=== PATIENT | male | born 1990 | race Caucasian/White ===

== ENCOUNTER 2018-03-03 13:26 | Emergency (ER) | payer MEDICAID ==
[~2018-03-03] VITALS: Ht 172.7 cm; Wt 62.7 kg
[2018-03-03 13:41] VITALS: BP 134/74
[2018-03-03] MEDS ORDERED: PRED50TA PO (14:35)
[2018-03-03] MEDS ORDERED: IBUP-1986 PO (14:35)
[2018-03-03] MEDS ORDERED: ketorolac tromethamine 15mg/ml inj. IM ONE (14:35)
== END 2018-03-03 15:09 | disposition home or self-care (01) ==
LOC: ER 13:27
DX: M25.531 Pain in right wrist (principal); M79.89 Other specified soft tissue disorders; F17.200 Nicotine dependence, unspecified, uncomplicated; Z79.899 Other long term (current) drug therapy; X50.9XXA Other and unspecified overexertion or strenuous movements or postures, initial encounter; Y93.H1 Activity, digging, shoveling and raking; Y92.89 Other specified places as the place of occurrence of the external cause; Y99.8 Other external cause status
CPT/HCPCS: 29125; 73090; 96372; 99284; J1885

== ENCOUNTER 2018-12-17 18:17 | Emergency (ER) | payer MEDICAID, OTHER ==
[~2018-12-17] VITALS: Ht 172.7 cm; Wt 75.0 kg
[~2018-12-17 18:17] MED LIST: IBUP-1986 PO; PRED50TA PO
[2018-12-17] MEDS ORDERED: TETanus/Pertussis (Acell)/Diphther VAC/PF (Tdap-Adult) 0.5ml syringe IMVAC ONE (18:35)
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
--- NOTE | 2018-12-17 19:03 | NUR ---
[facility] AT BEDSIDE.
[2018-12-17] MEDS ORDERED: CEPH500C5 PO (19:39)
[2018-12-17] MEDS ORDERED: cephalexin 250mg capsule PO ONE (19:40)
--- NOTE | 2018-12-17 19:41 | NUR ---
[facility] INTERVIEW COMPLETED.
[2018-12-17 19:44] VITALS: BP 145/86
== END 2018-12-17 19:58 | disposition home or self-care (01) ==
LOC: ER 18:18
DX: S81.801A Unspecified open wound, right lower leg, initial encounter (principal); Z79.899 Other long term (current) drug therapy; W34.09XA Accidental discharge from other specified firearms, initial encounter; Y93.89 Activity, other specified; Y92.89 Other specified places as the place of occurrence of the external cause; Y99.9 Unspecified external cause status
CPT/HCPCS: 73590; 90471; 90715; 99283

== ENCOUNTER 2019-01-07 00:53 | Emergency (ER) | payer MEDICAID, OTHER ==
[~2019-01-07] VITALS: Ht 172.7 cm; Wt 72.7 kg
[~2019-01-07 00:53] MED LIST changes: +CEPH500C5 PO
[2019-01-07 01:10] VITALS: BP 126/81
[2019-01-07] MEDS ORDERED: AMOX-580 PO (01:34)
[2019-01-07] MEDS ORDERED: amox tr/potassium clavulanate 875/125mg TAB PO ONE (01:35)
== END 2019-01-07 01:56 | disposition home or self-care (01) ==
LOC: ER 00:54
DX: K04.7 Periapical abscess without sinus (principal); Z79.899 Other long term (current) drug therapy
CPT/HCPCS: 99283

== ENCOUNTER 2019-03-03 02:51 | Emergency (ER) | payer MEDICAID, OTHER ==
[~2019-03-03] VITALS: Ht 172.7 cm; Wt 69.0 kg
[2019-03-03 04:50] VITALS: BP 125/82
[2019-03-03] MEDS ORDERED: PENI500T2 PO (06:07)
== END 2019-03-03 06:37 | disposition home or self-care (01) ==
LOC: ER 02:52
DX: K02.9 Dental caries, unspecified (principal); Z79.2 Long term (current) use of antibiotics; Z79.899 Other long term (current) drug therapy
CPT/HCPCS: 99283

== ENCOUNTER 2019-09-28 11:41 | Emergency (ER) | payer MEDICAID ==
[~2019-09-28] VITALS: Ht 172.7 cm; Wt 72.0 kg
[2019-09-28 12:02] VITALS: BP 121/85
[2019-09-28] MEDS ORDERED: CefTRIAXone 2gm/D5W 50ml 50 ML IV ONE (12:50)
[2019-09-28] MEDS ORDERED: vancomycin/NS 1 GM ADD-VANTAGE 250 ML IV ONE (12:50)
[2019-09-28] MEDS ORDERED: normal saline 1000ML IV soln IV ONE (12:50)
[2019-09-28 12:55] LABS: ALANINE AMINOTRANSFERASE 22 U/L (12-78); ALBUMIN 3.7 G/DL (3.4-5.0); ALBUMIN/GLOBULIN RATIO 0.9 (1.1-1.5); ALKALINE PHOSPHATASE 139 IU/L (46-116); ANION GAP 7 (8-16); ASPARTATE AMINO TRANSFERASE 23 U/L (10-37); BILIRUBIN,TOTAL 0.6 MG/DL (0.1-1.0); BLOOD UREA NITROGEN 11 MG/DL (7-18); BUN/CREATININE RATIO 12.4 (5.4-32.0); CHLORIDE 103 MMOL/L (99-107); CREATININE 0.89 MG/DL (0.60-1.10); GLUCOSE 90 MG/DL (70-104); POTASSIUM 4.2 MMOL/L (3.5-5.1); SODIUM 135 MMOL/L (135-145); TOTAL CARBON DIOXIDE 24.6 MMOL/L (24-32); eGFR > 90 ML/MIN
[2019-09-28] MEDS ORDERED: SULF1TAB49 PO (14:20)
== END 2019-09-28 14:18 | disposition left against medical advice (07) ==
LOC: ER 11:41
DX: L02.511 Cutaneous abscess of right hand (principal); F12.90 Cannabis use, unspecified, uncomplicated; F15.90 Other stimulant use, unspecified, uncomplicated; F17.200 Nicotine dependence, unspecified, uncomplicated; Z79.899 Other long term (current) drug therapy
CPT/HCPCS: 36415; 76882; 80053; 99284

== ENCOUNTER 2023-03-11 18:45 | Emergency (ER) | payer MEDICAID ==
[~2023-03-11] VITALS: Ht 170.2 cm; Wt 75.0 kg
[~2023-03-11 18:45] MED LIST changes: +CEPH-585 PO; -CEPH500C5 PO
[2023-03-11 19:17] VITALS: BP 133/86; PULSE 94; TEMP 98; O2SAT 98
[2023-03-11] MEDS ORDERED: TETanus/Pertussis (Acell)/Diphther VAC/PF (Tdap-Adult) 0.5ml syringe IMVAC ONE (20:30)
[2023-03-11] MEDS ORDERED: amox tr/potassium clavulanate 875/125mg TAB PO ONE (20:30)
[2023-03-11] MEDS ORDERED: LIDOcaine 1% 30ml preserv. free vial IJ ONE (20:30)
[2023-03-11] MEDS ORDERED: HYDROcodone/acetaminophen 10/325mg tab PO ONE (20:30)
[2023-03-11 20:56] VITALS: RESP 18
[2023-03-11] MEDS ORDERED: AMOX-117 PO (20:57)
[2023-03-11] MEDS ORDERED: LORazepam 1 MG tablet PO ONE (21:00)
[2023-03-11] MEDS ORDERED: LIDOcaine/epinephrine/tetracaine TOPICAL sol 3 ML syringe TOP ONE (21:00)
[2023-03-11] MEDS ORDERED: OXYC-481 PO (22:22)
== END 2023-03-11 22:36 | disposition home or self-care (01) ==
LOC: ER 18:45
DX: S31.31XA Laceration without foreign body of scrotum and testes, initial encounter (principal); F12.90 Cannabis use, unspecified, uncomplicated; F15.90 Other stimulant use, unspecified, uncomplicated; Z79.2 Long term (current) use of antibiotics; Z79.82 Long term (current) use of aspirin; W54.0XXA Bitten by dog, initial encounter; Y93.89 Activity, other specified; Y92.89 Other specified places as the place of occurrence of the external cause; Y99.8 Other external cause status
CPT/HCPCS: 12002; 90471; 90715; 99284; J3490; J7030; A6449